=== PATIENT | male | born 1980 | race Native Hawaiian/Other Pacific Islander ===

== ENCOUNTER 2023-01-17 13:00 | Emergency (ER) | payer OTHER ==
[2023-01-17 13:09] VITALS: BP 126/83; PULSE 77; RESP 16; TEMP 98; BMI 26.6
[2023-01-17] MEDS ORDERED: ACETAMINOPHEN 500 MG TABLET (FP) PO ONE (13:51)
[2023-01-17] MEDS ORDERED: KETOROLAC TROMETHAMINE 30 MG/1 ML VIAL IM ONE (13:53)
[2023-01-17] MEDS ORDERED: LIDOCAINE 5% TOPICAL PATCH TP ONE (13:53)
[2023-01-17] MEDS ORDERED: KETOROLAC TROMETHAMINE 30 MG/1 ML VIAL ONE ×2 (14:16→14:21)
[2023-01-17] MEDS ORDERED: LIDOCAINE 5% TOPICAL PATCH ONE ×2 (14:16→14:21)
[2023-01-17] MEDS ORDERED: ACETAMINOPHEN 500 MG TABLET (FP) ONE (14:16)
[2023-01-17] MEDS ORDERED: ACETAMINOPHEN 325 MG TABLET (FP) ONE (14:20)
[2023-01-17] MEDS ORDERED: LIDOCAINE PATCH REMOVAL MC SCH (22:00)
== END 2023-01-17 18:10 | disposition home or self-care (01) ==
LOC: JERFT 13:00
PROC: 3E0233Z Introduction of Anti-inflammatory into Muscle, Percutaneous Approach (ICD-10-PCS; principal; 2023-01-17)
DX: M54.50 Low back pain, unspecified (principal)
CPT/HCPCS: 99284-25